=== PATIENT | female | born 1990 | race Caucasian/White ===

== ENCOUNTER → 2016-05-20 | Outpatient (CLI) | payer OTHER ==
[2016-05-20 13:04] LABS: ESTRADIOL 193.8 PG/ML
== END ==
LOC: M SMT 08:26
PROVIDERS: ATTEND Obstetrics & Gynecology Reproductive Endocrinology
DX: N97.9 Female infertility, unspecified (principal)

== ENCOUNTER → 2016-05-27 | Outpatient (CLI) | payer OTHER ==
[2016-05-27 12:03] LABS: PROGESTERONE 10.2 NG/ML
[2016-05-27 12:04] LABS: HCG, SERUM QUANTITATIVE < 1.0 MIU/ML
== END ==
LOC: M SMT 08:36
PROVIDERS: ATTEND Obstetrics & Gynecology Reproductive Endocrinology
DX: N97.9 Female infertility, unspecified (principal)

== ENCOUNTER → 2016-06-21 | Outpatient (CLI) | payer OTHER ==
[2016-06-21 12:48] LABS: ESTRADIOL 397.5 PG/ML; PROGESTERONE 30.7 NG/ML
== END ==
LOC: M SMT 08:50
PROVIDERS: ATTEND Obstetrics & Gynecology Reproductive Endocrinology
DX: N97.9 Female infertility, unspecified (principal)

== ENCOUNTER → 2016-06-25 | Outpatient (CLI) | payer OTHER ==
[2016-06-25 11:04] LABS: PROGESTERONE 33.1 NG/ML
== END ==
LOC: M SMT 08:27
PROVIDERS: ATTEND Obstetrics & Gynecology Reproductive Endocrinology
DX: N97.9 Female infertility, unspecified (principal)

== ENCOUNTER → 2016-06-28 | Outpatient (CLI) | payer OTHER ==
[2016-06-28 11:47] LABS: ESTRADIOL 867.4 PG/ML
== END ==
LOC: M SMT 08:23
PROVIDERS: ATTEND Obstetrics & Gynecology Reproductive Endocrinology
DX: Z32.01 Encounter for pregnancy test, result positive (principal)

== ENCOUNTER → 2016-06-30 | Outpatient (CLI) | payer OTHER ==
[2016-06-30 10:45] LABS: ESTRADIOL 1150.1 PG/ML; PROGESTERONE 21.9 NG/ML
== END ==
LOC: M SMT 08:35
PROVIDERS: ATTEND Obstetrics & Gynecology Reproductive Endocrinology
DX: Z32.01 Encounter for pregnancy test, result positive (principal)

== ENCOUNTER → 2016-07-02 | Outpatient (CLI) | payer OTHER | LOC: M SMT 08:28 | PROVIDERS: ATTEND Obstetrics & Gynecology Reproductive Endocrinology | DX: N97.9 Female infertility, unspecified (principal) ==

== ENCOUNTER → 2016-07-22 | Outpatient (CLI) | payer OTHER ==
[2016-07-22 13:01] LABS: PROGESTERONE 28.3 NG/ML
== END ==
LOC: M SMT 08:18
PROVIDERS: ATTEND Obstetrics & Gynecology Reproductive Endocrinology
DX: N97.9 Female infertility, unspecified (principal)

== ENCOUNTER → 2016-07-26 | Outpatient (CLI) | payer OTHER ==
[2016-07-26 12:26] LABS: PROGESTERONE 22.4 NG/ML
== END ==
LOC: M LRY 08:15
PROVIDERS: ATTEND Obstetrics & Gynecology Reproductive Endocrinology
DX: N97.9 Female infertility, unspecified (principal)

== ENCOUNTER → 2016-07-28 | Outpatient (CLI) | payer OTHER ==
[2016-07-28 11:38] LABS: PROGESTERONE 28.2 NG/ML
== END ==
LOC: M LRY 08:22
PROVIDERS: ATTEND Obstetrics & Gynecology Reproductive Endocrinology
DX: Z32.01 Encounter for pregnancy test, result positive (principal)

== ENCOUNTER → 2016-09-15 | Outpatient (CLI) | payer OTHER ==
[2016-09-15 19:47] LABS: BASO % 0.4 % (0.0-1.0); EOS # 0.1 K/mm3 (0.0-0.50); EOS % 1.2 % (0.0-3.0); LARGE UNSTAINED CELL # 0.2 K/mm3 (0.0-0.4); LARGE UNSTAINED CELL % 1.9 % (0.0-4.0); LYMPH # 2.3 K/mm3 (1.5-6.5); LYMPH % 24.8 % (24.0-44.0); MEAN CORPUSCULAR HEMOGLOBIN 32.1 pg (27.0-33.0); MEAN CORPUSCULAR HGB CONC 34.7 g/dl (32.0-36.5); MEAN CORPUSCULAR VOLUME 92.7 fl (80.0-96.0); MONO # 0.5 K/mm3 (0.0-0.8); MONO % 6.2 % (0.0-5.0); NEUTROPHILS # 5.5 K/mm3 (1.8-7.7); NEUTROPHILS % 65.5 % (36.0-66.0); PLATELET COUNT, AUTOMATED 240 k/mm3 (150-450); RED CELL DISTRIBUTION WIDTH 11.4 % (11.5-14.5); WHITE BLOOD COUNT 8.4 K/mm3 (4.0-10.0)
[2016-09-17 11:24] LABS: HBsAg Prenatal NEGATIVE (NEGATIVE)
== END ==
LOC: M SMT 14:45
PROVIDERS: ATTEND Specialist
DX: Z34.81 Encounter for supervision of other normal pregnancy, first trimester (principal)

== ENCOUNTER → 2016-10-25 | Outpatient (CLI) | payer OTHER | LOC: M SMT 11:41 | PROVIDERS: ATTEND Advanced Practice Midwife | DX: Z36 Encounter for antenatal screening of mother (principal) ==

== ENCOUNTER → 2016-11-03 | Outpatient (CLI) | payer OTHER ==
--- NOTE | 2016-11-03 09:23 | REP ---
Clinical: Anatomical evaluation. Comparison: None . Findings: Examination demonstrates a single live intrauterine in cephalic presentation. motion is identified by technologist. Placenta is noted anteriorly and grade zero without evidence for placenta previa or abruption. Multiple placental venous lakes are identified measuring up to 2.4 cm. Amniotic fluid volume is normal. Cervix measures 4.4 cm in length and appears closed. No evidence for nuchal cord. Gestational age by LMP 18 weeks 2 days with MELIA 04/04/2017 . Gestational age by current measurements 18 weeks 3 days with MELIA 04/03/2017 . FHR equals 147 beats per minute. BPD 4.0 cm 18 weeks 1 day HC 15.4 cm 18 weeks 2 days AC 13.3 cm 18 weeks 6 days FL 2.9 cm 19 weeks 0 days HL 2.7 cm 18 weeks 5 days HC/AC ratio 1.15 Estimated weight 259 grams ( 66 percentile). Anatomical assessment demonstrates normal structures including cranium, choroid plexus, cavum, cerebellum/posterior fossa, facial features, lungs, diaphragm, stomach, cord insertion, kidneys/bladder, spine, and upper extremities. Limited evaluation of the facial profile, heart/ventricular outflow tracts, transverse three-vessel cord view, and lower extremities. Impression: 1. Single live intrauterine in cephalic presentation demonstrating appropriate interval growth. 2. Placental venous lakes noted. 3. Anatomical limitations as described above may warrant reevaluation and follow-up. Signed by Bhanu Sanford MD 11/03/2016 09:15 A
== END ==
LOC: M SMT 07:48
PROVIDERS: ATTEND Specialist
DX: Z34.82 Encounter for supervision of other normal pregnancy, second trimester (principal); Z3A.18 18 weeks gestation of pregnancy

== ENCOUNTER → 2016-12-01 | Outpatient (CLI) | payer OTHER ==
--- NOTE | 2016-12-02 05:49 | REP ---
Clinical: Anatomical evaluation. Comparison: 11/03/2016 . Findings: Examination demonstrates a single live intrauterine in variable presentation. motion is identified by technologist. Placenta is noted anteriorly and grade zero without evidence for placenta previa or abruption. Amniotic fluid volume is normal. Cervix measures 4.6 cm in length and appears closed. No evidence for nuchal cord. Gestational age by LMP 22 weeks 2 days with MELIA 04/04/2017 . Gestational age by current measurements 21 weeks 6 days with MELIA 04/07/2017 . FHR equals 153 beats per minute. Estimated weight 491 grams ( 45th percentile). Anatomical assessment demonstrates normal structures including cranium, choroid plexus, cavum, cerebellum/posterior fossa, facial profile, lungs, four-chamber heart/ left ventricular outflow tract, diaphragm, stomach, cord insertion/three-vessel cord, kidneys/bladder, spine, and extremities. Impression: Single live intrauterine in variable presentation demonstrating appropriate interval growth. While no gross abnormalities are identified, limited evaluation of the nose/lips and right cardiac ventricular outflow tract are again noted. Signed by Bhanu Sanford MD 12/02/2016 05:40 A
== END ==
LOC: M SMT 11:17
PROVIDERS: ATTEND Advanced Practice Midwife
DX: Z34.82 Encounter for supervision of other normal pregnancy, second trimester (principal); Z3A.21 21 weeks gestation of pregnancy

== ENCOUNTER → 2016-12-28 | Outpatient (CLI) | payer OTHER ==
[~2016-12-28] MED LIST: COLA100C5 PO; OMEP20CA3 PO; PREN29CH PO; ZYRT10TA2 PO
[2016-12-28 11:06] LABS: MEAN CORPUSCULAR HEMOGLOBIN 32.8 pg (27.0-33.0); MEAN CORPUSCULAR HGB CONC 34.1 g/dl (32.0-36.5); MEAN CORPUSCULAR VOLUME 96.3 fl (80.0-96.0); RED CELL DISTRIBUTION WIDTH 12.9 % (11.5-14.5); WHITE BLOOD COUNT 10.4 K/mm3 (4.0-10.0)
== END ==
LOC: M SMT 08:18
PROVIDERS: ATTEND Obstetrics & Gynecology
DX: Z34.82 Encounter for supervision of other normal pregnancy, second trimester (principal)
CPT/HCPCS: 36415; 82950; 85027; 86850; 86900; 86901; J2790

== ENCOUNTER → 2016-12-29 | Outpatient (CLI) | payer OTHER ==
--- NOTE | 2016-12-29 17:50 | REP ---
OB ULTRASOUND: Real-time sonographic evaluation of the gravid uterus is performed. There is a single living intrauterine gestation. The estimated gestational age is 26 weeks 2 days. EDC 04/04/2017. Today's measurements indicate appropriate growth. BPD 68 mm = 27 weeks 3 days, at the 74th percentile. HC 248 mm = 26 weeks 6 days, at the 63rd percentile. AC 221 mm = 26 weeks 4 day, at the 55th percentile. Femur length 49 mm = 26 weeks 3 days, at the 54th percentile. HC/AC ratio 1.12 within normal range. Estimated weight 959 grams at the 51st percentile. Cervix is closed measures 5.4 cm in length. heart rate 153 beats per minute. SEEN/GROSSLY UNREMARKABLE Lateral ventricles Yes Posterior fossa Yes Upper lip Yes Four-chamber heart Yes LVOT Yes RVOT Yes Stomach Yes Cord insertion Yes Three vessel cord Yes Kidneys Yes Bladder Yes Spine No position: Breach. Placenta: Anterior and grade 0 with no previa abruption. Amniotic fluid: Within normal limits. Signed by Raj Hearn MD 12/30/2016 08:58 A
== END ==
LOC: M SMT 14:52
PROVIDERS: ATTEND Obstetrics & Gynecology
DX: Z36 Encounter for antenatal screening of mother (principal); Z3A.26 26 weeks gestation of pregnancy

== ENCOUNTER 2017-03-28 07:05 | Inpatient (IN) | payer OTHER ==
[~2017-03-28] VITALS: Ht 170.2 cm; Wt 88.6 kg
[2017-03-28] VITALS (7 sets, daily range): BP systolic 114–137; BP diastolic 69–84
[2017-03-28] MEDS: OMEPRAZOLE 20 MG CAP PO SCH (09:00)
[2017-03-28] MEDS: PRENATAL VITAMINS CHEWABLE TABLET PO SCH (09:00)
[2017-03-28] MEDS: CETIRIZINE (ZyrTEC) 10 MG TAB PO SCH (09:00)
[2017-03-28] MEDS ORDERED: BICITRA 30ML SOLN UDC PO ONE (09:15)
[2017-03-28 09:50] LABS: MEAN CORPUSCULAR HEMOGLOBIN 32.8 pg (27.0-33.0); MEAN CORPUSCULAR HGB CONC 34.7 g/dl (32.0-36.5); MEAN CORPUSCULAR VOLUME 94.5 fl (80.0-96.0); PLATELET COUNT, AUTOMATED 195 10^3/uL (150-450); WHITE BLOOD COUNT 10.5 10^3/uL (4.0-10.0)
[2017-03-28] MEDS ORDERED: KETOROLAC 30 MG/ML VIAL (J1885) IV SCH (11:00)
[2017-03-28] MEDS ORDERED: LR 1,000 ML IV SCH ×2 (11:27→11:45)
[2017-03-28] MEDS ORDERED: DOCUSATE SODIUM 100 MG CAP PO PRN (11:30)
[2017-03-28] MEDS ORDERED: ONDANSETRON 4MG/2ML VIAL (J2405) IV PRN ×2 (11:30→11:45)
[2017-03-28] MEDS ORDERED: RHOGAM 300 MCG (1500 IU) INJ (J2790) IM SCH (11:30)
[2017-03-28] MEDS ORDERED: MEASLES,MUMPS,RUBELLA VACCINE INJ (MMR-II) (90707) SC SCH (11:30)
[2017-03-28] MEDS ORDERED: PERCOCET 5MG/325MG TAB PO PRN ×3 (11:30→11:45)
[2017-03-28] MEDS ORDERED: OXYTOCIN DRIP 30 UNITS in APPROPRIATE DILUENT 1 EA IV ONE (11:30)
[2017-03-28] MEDS ORDERED: fentaNYL 100 MCG/2 ML INJECTION (J3010) IV PRN (11:45)
[2017-03-28] MEDS ORDERED: NALBUPHINE HCL 10 MG/ML AMP (J2300) IV PRN (11:45)
[2017-03-28] MEDS ORDERED: MEPERIDINE INJ 25 MG/ML VIAL (J2175) IV PRN (11:45)
[2017-03-28] MEDS ORDERED: diphenhydrAMINE INJ 50MG/ML VIAL (J1200) IV PRN (11:45)
[2017-03-28] MEDS ORDERED: HYDROmorphone HCL 1 MG/ML SYRINGE (J1170) IV PRN (11:45)
--- NOTE | 2017-03-28 14:44 | RO ---
DATE OF OPERATION: 03/28/2017 PREOPERATIVE DIAGNOSIS: 39 weeks' gestation, breech presentation. POSTOPERATIVE DIAGNOSIS: 39 weeks' gestation, breech presentation. PROCEDURE: Primary low transverse section. SURGEON: Vitor Delgado MD ARTIST'S MODEL: Frank Jaramillo DO ANESTHESIA: Spinal. ESTIMATED BLOOD LOSS: 500 mL. URINE OUTPUT: 150 mL. FINDINGS: 2930-gram or 6-pound 7-ounce female , scores 8 and 9, roe breech position. Normal uterus, fallopian tubes, and ovaries. DESCRIPTION OF PROCEDURE: Operative summary: The patient taken the operating room, where spinal anesthesia was induced. She was prepped and draped in sterile fashion in the supine position. Dumont catheter was placed. A Pfannenstiel skin incision made with the scalpel and carried through to the fascia. The fascia was nicked and extended. The fascia was dissected off the rectus muscles. The rectus muscles were divided. The peritoneal cavity was entered. The bladder flap was created. A curvilinear incision was made in the lower uterine segment until bulging membranes were noted. This was extended manually. The was delivered from the roe breech position using standard maneuvers without difficulty. The cord was doubly clamped and cut. The infant was handed off to the awaiting nurses. The placenta was expressed. The uterus was exteriorized and cleared of clots and debris. The uterine incision was closed with 0 Vicryl in a running locked fashion. A second imbricating layer of 0 Vicryl was placed. The uterus placed back in the abdominal cavity. The peritoneum was closed with 2-0 Vicryl in a running fashion. The fascia was closed with 0 Vicryl in a running fashion. The subcutaneous layer was irrigated and closed with 2-0 chromic. The skin was closed with 4-0 Monocryl subcuticular sutures. Sponge, instrument, and needle counts were correct.
[2017-03-28] MEDS: KETOROLAC 30 MG/ML VIAL (J1885) IV SCH (20:53)
[2017-03-29 02:00] VITALS: BP 113/74
[2017-03-29] MEDS: KETOROLAC 30 MG/ML VIAL (J1885) IV SCH ×2 (02:10→07:48)
[2017-03-29 06:00] VITALS: BP 116/78
[2017-03-29] MEDS ORDERED: OXYC1TAB23 PO (06:59)
[2017-03-29] MEDS ORDERED: IBUP80TA PO (07:00)
[2017-03-29 07:05] LABS: MEAN CORPUSCULAR HEMOGLOBIN 32.6 pg (27.0-33.0); MEAN CORPUSCULAR HGB CONC 35.1 g/dl (32.0-36.5); MEAN CORPUSCULAR VOLUME 92.7 fl (80.0-96.0); PLATELET COUNT, AUTOMATED 175 10^3/uL (150-450); RED CELL DISTRIBUTION WIDTH 11.8 % (11.5-14.5); WHITE BLOOD COUNT 12.7 10^3/uL (4.0-10.0)
[2017-03-29] MEDS: OMEPRAZOLE 20 MG CAP PO SCH (07:47)
[2017-03-29] MEDS: CETIRIZINE (ZyrTEC) 10 MG TAB PO SCH (07:47)
[2017-03-29] MEDS: PRENATAL VITAMINS CHEWABLE TABLET PO SCH (07:47)
[2017-03-29 10:15] VITALS: BP 127/72
[2017-03-29 14:00] VITALS: BP 125/83
[2017-03-29] MEDS: IBUPROFEN 800 MG TAB PO SCH ×2 (16:05→23:21)
[2017-03-29 18:15] VITALS: BP 132/82
[2017-03-29 22:00] VITALS: BP 112/73
[2017-03-30 02:00] VITALS: BP 125/65
[2017-03-30 06:00] VITALS: BP 126/79
[2017-03-30] MEDS: PRENATAL VITAMINS CHEWABLE TABLET PO SCH (07:59)
[2017-03-30] MEDS: OMEPRAZOLE 20 MG CAP PO SCH (07:59)
[2017-03-30] MEDS: CETIRIZINE (ZyrTEC) 10 MG TAB PO SCH (07:59)
[2017-03-30] MEDS: IBUPROFEN 800 MG TAB PO SCH (08:00)
--- NOTE | 2017-03-30 16:19 | DSES ---
DATE OF ADMISSION: 03/28/2017 DATE OF DISCHARGE: 03/30/2017 26-year-old G1, P0 female, 39 and 0/7 week gestation presents for primary section due to breech presentation. course is otherwise unremarkable. HOSPITAL COURSE: On 03/28/2017, the patient underwent primary low transverse section. The procedure was without complication. The baby was noted to have drooping on the right side of its mouth. This was deemed to be due to probable compression of the facial nerve on the right side due to positioning in the uterus. The patient had adequate return or bladder and bowel function. Her hemoglobin was stable. She was deemed stable for discharge on postoperative day 2. ADMISSION DIAGNOSIS: at 39 weeks, breech. DISCHARGE DIAGNOSIS: Delivered. PROCEDURE: Primary low transverse section. DISPOSITION: The patient will followup with Dr. Delgado in two weeks. Discharge instructions are reviewed.
== END 2017-03-30 11:10 | disposition home or self-care (01) | DRG 766 ==
LOC: M LDI 07:05 → M OBS 13:01
PROVIDERS: ADMIT Specialist; ATTEND Specialist
PROC: 10D00Z1 Extraction of Products of Conception, Low, Open Approach (ICD-10-PCS; principal; 2017-03-28 09:30)
DX: O32.1XX0 Maternal care for breech presentation, not applicable or unspecified (principal); Z37.0 Single live birth; Z3A.39 39 weeks gestation of pregnancy